=== PATIENT | female | born 1955 ===

== ENCOUNTER 2020-10-31 16:38 | Emergency (ER) | payer BC ==
[~2020-10-31] VITALS: Ht 152.4 cm; Wt 54.4 kg
== END 2020-10-31 21:07 | disposition home or self-care (01) ==
LOC: ER 16:38
DX: K59.89 Other specified functional intestinal disorders (principal); K31.89 Other diseases of stomach and duodenum; K52.89 Other specified noninfective gastroenteritis and colitis; Z03.818 Encounter for observation for suspected exposure to other biological agents ruled out